=== PATIENT | female | born 1965 | race Caucasian/White ===

== ENCOUNTER 2016-08-27 09:25 | Emergency (ER) | payer MEDICAID, OTHER ==
[~2016-08-27] VITALS: Ht 149.9 cm; Wt 54.5 kg
[2016-08-27 09:31] VITALS: Ht 149.9 cm; Wt 54.5 kg
[2016-08-27] MEDS ORDERED: SOD CHLORIDE 0.9% 1,000 ML IV STA (10:09)
[2016-08-27] MEDS ORDERED: LIDOCAINE/MYLANTA 40 ML BTL PO STA (10:09)
[2016-08-27] MEDS ORDERED: ONDANSETRON 4 MG INJ IV STA (10:09)
[2016-08-27] MEDS ORDERED: KETOROLAC 15 MG INJ IV STA (10:09)
[2016-08-27] MEDS ORDERED: FAMOTIDINE 20 MG TAB PO STA (10:09)
[2016-08-27] MEDS ORDERED: BELLADONNA/PHENOBARBITAL TAB PO STA (10:09)
[2016-08-27 10:17] LABS: ADD UMIC YES; URINE BILIRUBIN (Dip) NEGATIVE (NEGATIVE); URINE BLOOD (Dip) 1+ (NEGATIVE); URINE COLOR LT. YELLOW (YELLOW); URINE GLUCOSE (Dip) NEGATIVE (NEGATIVE); URINE KETONES (Dip) NEGATIVE (NEGATIVE); URINE LEUKOCYTE ESTERASE (Dip) NEGATIVE (NEGATIVE); URINE NITRITE (Dip) NEGATIVE (NEGATIVE); URINE TOTAL PROTEIN (Dip) NEGATIVE (NEGATIVE); URINE UROBILINOGEN (Dip) 0.2 E.U./dL (0.1-1.0)
--- NOTE | 2016-08-27 10:24 | ERD ---
ER Documentation Chief Complaint Date/Time DATE: 08/27/16 TIME: 10:24 Chief Complaint BROUGHT IN VIA EMS FROM WORK DUE TO CHEST PAIN AND VOMITING HPI 51-year-old woman triaged as chest pain although she denies chest pain and points to her epigastrium. She states she has been having sharp nonexertional nonradiating epigastric pain and burning associated with 2 episodes of clear nonbloody nonbilious emesis. She has had no fevers or chills, no shortness of breath, no diarrhea, no blood per rectum or melena, no recent antibiotic use or recent travel. ROS All systems reviewed and are negative except as per history of present illness. Medications Home Meds Active Scripts Famotidine* (Famotidine*) 40 Mg Tablet, 40 MG PO HS, #30 TAB Prov:OZ IRVING MD 08/27/16 Mag Hydrox/Al Hydrox/Simeth (Maalox Advanced Suspension) 355 Ml Oral.susp, 2 TSP PO TID for PAIN, #24 OZ Prov:OZ IRVING MD 08/27/16 Naproxen* (Naproxen*) 500 Mg Tablet, 500 MG PO BID Y for PAIN, #20 TAB Prov:OZ IRVING MD 08/27/16 Omeprazole* (Omeprazole*) 40 Mg Capsule.dr, 40 MG PO DAILY, #30 CAP Prov:OZ IRVING MD 08/27/16 Allergies Allergies: Coded Allergies: No Known Allergy (Unverified , 08/27/16) PMhx/Soc Gastritis History of Surgery: No Hx Neurological Disorder: No Hx Respiratory Disorders: No Hx Cardiac Disorders: No Hx Psychiatric Problems: No Hx Miscellaneous Medical Probl: No Hx Alcohol Use: No Hx Substance Use: No Hx Tobacco Use: No Smoking Status: Never smoker FmHx Family History: No diabetes Physical Exam Vitals Vital Signs Date Time Temp Pulse Resp B/P Pulse Ox O2 Delivery O2 Flow Rate FiO2 08/27/16 12:15 65 17 166/78 99 Room Air 08/27/16 09:31 98.2 73 18 136/84 98 Physical Exam GENERAL: Well-developed, well-nourished, well-hydrated, in no apparent distress , looks nontoxic in appearance HEENT: Moist mucous membranes, pink conjunctiva, no cervical spine tenderness or step-off deformities, no goiter, no jaundice or icterus, extraocular movements intact without pain. No submandibular induration, and no pharyngeal erythema NEURO: Alert and oriented 3, cranial nerves II through XII intact bilaterally, pupils equal round reactive to light, no focal deficits or facial asymmetry, sensation intact distally Strength 5/5 in upper and lower extremities bilaterally CARDIAC: Regular rate and rhythm, no murmurs rubs or gallops LUNGS: Clear bilaterally no wheezing crackles or stridor ABDOMEN: Soft nontender, no guarding, no rigidity, no rebound, no psoas sign no obturator sign. Normoactive bowel sounds SKIN: Warm and dry to touch, no abrasions, contusions, or hematomas, no lacerations, no ecchymosis, no target lesions, and without ulcers EXTREMITIES: No clubbing cyanosis or edema, calves are bilaterally symmetrical, no Homans sign, no popliteal cord sign. Distal pulses equal and bilateral PSYCH: Normal affect without agitation or irritability Result Diagram: 08/27/16 1000 08/27/16 1000 Results 24 hrs Laboratory Tests Test 08/27/16 10:00 08/27/16 10:02 White Blood Count 6.810^3/ul Red Blood Count 4.3710^6/ul Hemoglobin 12.2g/dl Hematocrit 36.9% Mean Corpuscular Volume 84.4fl Mean Corpuscular Hemoglobin 27.9pg Mean Corpuscular Hemoglobin Concent 33.1g/dl Red Cell Distribution Width 12.7% Platelet Count 01557^3/UL Mean Platelet Volume 9.9fl Neutrophils % 52.6% Lymphocytes % 36.2% Monocytes % 8.1% Eosinophils % 2.3% Basophils % 0.4% Nucleated Red Blood Cells % 0.0/100WBC Neutrophils # 3.610^3/ul Lymphocytes # 2.510^3/ul Monocytes # 0.610^3/ul Eosinophils # 0.210^3/ul Basophils # 0.010^3/ul Nucleated Red Blood Cells # 0.010^3/ul Sodium Level 139mmol/L Potassium Level 3.8mmol/L Chloride Level 105mmol/L Carbon Dioxide Level 24mmol/L Anion Gap 14 Blood Urea Nitrogen 8mg/dl Creatinine 0.61mg/dl Glucose Level 138mg/dl Calcium Level 9.0mg/dl Total Bilirubin 0.1mg/dl Direct Bilirubin 0.00mg/dl Indirect Bilirubin 0.1mg/dl Aspartate Amino Transf (AST/SGOT) 33IU/L Alanine Aminotransferase (ALT/SGPT) 42IU/L Alkaline Phosphatase 158IU/L Total Protein 7.6g/dl Albumin 4.1g/dl Globulin 3.50g/dl Albumin/Globulin Ratio 1.17 Lipase 92U/L Urine Color LT. YELLOW Urine Clarity CLEAR Urine pH 7.0 Urine Specific [place] <=1.005 Urine Ketones NEGATIVE Urine Nitrite NEGATIVE Urine Bilirubin NEGATIVE Urine Urobilinogen 0.2 E.U./dL Urine Leukocyte Esterase NEGATIVE Urine Microscopic RBC 2-5/HPF Urine Microscopic WBC NONE SEEN/HPF Urine Hemoglobin 1+ Urine Glucose NEGATIVE% Urine Total Protein NEGATIVE Current Medications Medications (Trade) Dose Ordered Sig/Stephon Route PRN Reason Start Time Stop Time Status Last Admin Dose Admin Sodium Chloride (NS) 1,000 ml @ 1,000 mls/hr Q1H STAT IV 08/27/16 10:09 08/27/16 11:08 DC 08/27/16 10:21 Ondansetron HCl (Zofran Inj) 4 mg ONCE STAT IV 08/27/16 10:09 08/27/16 10:11 DC 08/27/16 10:21 Famotidine (Pepcid) 40 mg ONCE STAT PO 08/27/16 10:09 08/27/16 10:11 DC 08/27/16 10:21 Miscellaneous Medication (Gi Cocktail (2)) 40 ml ONCE STAT PO 08/27/16 10:09 08/27/16 10:11 DC 08/27/16 10:21 Belladonna/ Phenobarbital () 2 tab ONCE STAT PO 08/27/16 10:09 08/27/16 10:11 DC 08/27/16 10:21 Ketorolac Tromethamine (Toradol) 15 mg ONCE STAT IV 08/27/16 10:09 08/27/16 10:11 DC 08/27/16 10:28 Procedures/MDM IV line was established patient was placed on surveillance monitor rhythm strip revealed a sinus rhythm at about 70 bpm with upright P and T waves. Patient was afebrile. EKG performed, read by me: 66 bpm, normal sinus rhythm, normal axis, no acute ST segment changes, narrow QRS complex, with good R-wave progression in precordial leads. I administered 1 L normal saline intravenously, Zofran 4 mg IV, Toradol 15 mg IV , GI cocktail 50 cc p.o., and famotidine 40 mg p.o. with good response. CBC and electrolytes are normal, liver function tests are normal, urine analysis was negative. Gallbladder ultrasound revealed steatosis, no acute cholecystitis was noted. Please refer to radiologist dictation for full report. Differential diagnoses considered, included but not limited to acute coronary syndrome, pulmonary embolism, aortic dissection, abdominal aortic aneurysm, sepsis, stroke, meningitis, encephalitis, pneumonia, appendicitis, cholecystitis , bowel obstruction, pyelonephritis, nephrolithiasis, cystitis, as well as metabolic, hematologic, and electrolyte abnormalities. As well as abscess, cellulitis, fractures, and dislocations. Patient feels much better at this time, and vital signs are normal, symptoms have improved. I did give strict instructions to return to the ED if symptoms continue or worsen, patient will otherwise follow-up with primary care physician. Patient understood instructions and agreed to plan. Departure Diagnosis: Primary Impression: Abdominal pain Abdominal location: epigastric Qualified Code: R10.13 - Epigastric pain Additional Impressions: Steatosis Gastritis Gastritis type: superficial Chronicity: acute Gastritis bleeding: without bleeding Qualified Code: K29.00 - Acute superficial gastritis without hemorrhage Condition: Good OZ IRVING MD Aug 27, 2016 10:24
[2016-08-27 11:16] LABS: ADD SCAN DIFF NO
[2016-08-27 11:17] LABS: BASOPHILS % 0.4 % (0.0-2.0); EOSINOPHILS # 0.2 10^3/ul (0.0-0.5); EOSINOPHILS % 2.3 % (0.0-7.0); HEMATOCRIT 36.9 % (37.0-47.0); HEMOGLOBIN 12.2 g/dl (12.0-16.0); LYMPHOCYTES # 2.5 10^3/ul (0.8-2.9); LYMPHOCYTES % 36.2 % (15.0-51.0); MEAN CORPUSCULAR HEMOGLOBIN 27.9 pg (29.0-33.0); MEAN CORPUSCULAR HGB CONC 33.1 g/dl (32.0-37.0); MEAN CORPUSCULAR VOLUME 84.4 fl (82.0-101.0); MEAN PLATELET VOLUME 9.9 fl (7.4-10.4); MONOCYTE # 0.6 10^3/ul (0.3-0.9); MONOCYTES % 8.1 % (0.0-11.0); NEUTROPHIL # 3.6 10^3/ul (1.6-7.5); NEUTROPHILS % 52.6 % (39.0-77.0); PLATELET COUNT 304 10^3/UL (140-415); RED BLOOD COUNT 4.37 10^6/ul (4.20-5.40); RED CELL DISTRIBUTION WIDTH 12.7 % (11.5-14.5); WHITE BLOOD COUNT 6.8 10^3/ul (4.8-10.8)
--- NOTE | 2016-08-27 11:20 | RADRPT ---
PROCEDURE: US Abdomen (right upper quadrant). CLINICAL INDICATION: Abdominal pain TECHNIQUE: Multiple real-time longitudinal and transverse images of the right upper quadrant of th e abdomen were acquired utilizing a curved array transducer. Images were reviewed on a high-resoluti on PACS workstation. COMPARISON: None FINDINGS: The liver is normal in size and demonstrates mildly diffusely increased echogenicity without focal m ass or intrahepatic biliary dilatation. The gallbladder is normal. There is no pericholecystic flu id or gallbladder wall thickening or gallstones. No intra or extrahepatic biliary dilatation is see n. The common bile duct measures 4.2 mm in maximal dimension. The visualized portions of the pancr eas are unremarkable with obscuration of the tail of the pancreas. No free fluid is identified. The right kidney measures 11.23 cm in length. There is normal echogenicity within the right kidney. There is no perinephric fluid collection. No hydronephrosis, mass, or calculus is seen. IMPRESSION: Mildly diffusely increased hepatic echogenicity suggesting steatosis. Otherwise, unremarkable right upper quadrant ultrasound. RPTAT: JJ .Larry Marrero MD, MD Date Time Electronically viewed and signed by .Larry Marrero MD, on 08/27/2016 11:20 .A/
[2016-08-27 11:27] LABS: ALBUMIN 4.1 g/dl (3.3-4.9); ALBUMIN/GLOBULIN RATIO 1.17; BILIRUBIN,INDIRECT 0.1 mg/dl (0-1.1); BILIRUBIN,TOTAL 0.1 mg/dl (0.2-1.3); CREATININE 0.61 mg/dl (0.44-1.00); POTASSIUM 3.8 mmol/L (3.5-5.1); TOTAL PROTEIN 7.6 g/dl (6.1-8.1)
[2016-08-27] MEDS ORDERED: OMEP40CA6 PO (11:46)
[2016-08-27] MEDS ORDERED: MAG355OR14 PO (11:46)
[2016-08-27] MEDS ORDERED: FAMO40TA52 PO (11:46)
[2016-08-27] MEDS ORDERED: NAPR-688 PO (11:46)
[2016-08-27 12:15] VITALS: BP 166/78; PULSE 65; RESP 17
== END 2016-08-27 12:16 | disposition home or self-care (01) ==
LOC: E/R 09:25
DX: R10.13 Epigastric pain (principal); K76.0 Fatty (change of) liver, not elsewhere classified; K29.00 Acute gastritis without bleeding
CPT/HCPCS: 76705; 80053; 81001; 81003; 83690; 85025; J1885; J2405; J7030; Z7610; 36415; 96374; 96375

== ENCOUNTER 2017-01-30 15:17 | Emergency (ER) | payer SELFPAY ==
[~2017-01-30] VITALS: Ht 167.6 cm; Wt 55.5 kg
[~2017-01-30 15:17] MED LIST: FAMO40TA52 PO; MAG355OR14 PO; NAPR-688 PO; OMEP40CA6 PO
[2017-01-30 15:24] VITALS: Ht 167.6 cm; Wt 55.5 kg
[2017-01-30] MEDS ORDERED: ONDANSETRON 4 MG INJ IV STA (15:44)
[2017-01-30 16:19] LABS: BASOPHILS % 0.4 % (0.0-2.0); EOSINOPHILS # 0.2 10^3/ul (0.0-0.5); EOSINOPHILS % 2.4 % (0.0-7.0); HEMATOCRIT 36.5 % (37.0-47.0); HEMOGLOBIN 11.9 g/dl (12.0-16.0); LYMPHOCYTES # 3.1 10^3/ul (0.8-2.9); LYMPHOCYTES % 41.2 % (15.0-51.0); MEAN CORPUSCULAR HEMOGLOBIN 27.6 pg (29.0-33.0); MEAN CORPUSCULAR HGB CONC 32.6 g/dl (32.0-37.0); MEAN CORPUSCULAR VOLUME 84.7 fl (82.0-101.0); MEAN PLATELET VOLUME 9.4 fl (7.4-10.4); MONOCYTE # 0.7 10^3/ul (0.3-0.9); MONOCYTES % 8.6 % (0.0-11.0); NEUTROPHIL # 3.5 10^3/ul (1.6-7.5); PLATELET COUNT 300 10^3/UL (140-415); RED BLOOD COUNT 4.31 10^6/ul (4.20-5.40); RED CELL DISTRIBUTION WIDTH 12.8 % (11.5-14.5); WHITE BLOOD COUNT 7.5 10^3/ul (4.8-10.8)
[2017-01-30 16:37] LABS: ADD UMIC NO; UR ASCORBIC ACID 20 mg/dL (NEGATIVE); UR BILIRUBIN (Dip) NEGATIVE (NEGATIVE); UR BLOOD (Dip) NEGATIVE (NEGATIVE); UR CLARITY SLIGHTLY CLOUDY (CLEAR); UR COLOR YELLOW (YELLOW); UR GLUCOSE (Dip) NEGATIVE (NEGATIVE); UR KETONES (Dip) NEGATIVE (NEGATIVE); UR LEUKOCYTE ESTERASE (Dip) NEGATIVE Leu/ul (NEGATIVE); UR NITRITE (Dip) NEGATIVE (NEGATIVE); UR RBC 1 /HPF (0-5); UR SPECIFIC GRAVITY (Dip) 1.018 (1.003-1.030); UR TOTAL PROTEIN (Dip) NEGATIVE (NEGATIVE); UR UROBILINOGEN (Dip) NEGATIVE (NEGATIVE)
[2017-01-30] MEDS ORDERED: KETOROLAC 30 MG INJ IV STA (16:39)
[2017-01-30 16:48] LABS: ALBUMIN 4.4 g/dl (3.3-4.9); ALBUMIN/GLOBULIN RATIO 1.29; CALCIUM 9.5 mg/dl (8.4-10.2); CREATININE 0.77 mg/dl (0.44-1.00); POTASSIUM 4.2 mmol/L (3.5-5.1); TOTAL PROTEIN 7.8 g/dl (6.1-8.1)
[2017-01-30] MEDS ORDERED: ONDA8TAB14 PO (17:12)
[2017-01-30] MEDS ORDERED: IBUP400T22 PO (17:12)
--- NOTE | 2017-01-30 17:16 | ERD ---
ER Documentation Chief Complaint Date/Time DATE: 01/30/17 TIME: 17:14 Chief Complaint jones, backpain & chills x3days HPI This 51-year-old female presents with multiple complaints for the last 2 days. She feels chills but no fevers. She has low back pain. She has bitemporal headache with some mild dizziness. She also has nausea suprapubic pain. She denies any specific right lower quadrant pain or right upper quadrant pain. She denies any chest pain or shortness of breath or sore throat. ROS All systems reviewed and are negative except as per history of present illness. Medications Home Meds Active Scripts Ondansetron (Ondansetron Odt) 8 Mg Tab.rapdis, 8 MG PO Q6H Y for NAUSEA AND/OR VOMITING, #8 TAB Prov:LEV PATTERSON MD 01/30/17 Ibuprofen* (Motrin*) 400 Mg Tab, 400 MG PO Q6, #15 TAB Prov:LEV PATTERSON MD 01/30/17 Famotidine* (Famotidine*) 40 Mg Tablet, 40 MG PO HS, #30 TAB Prov:OZ IRVING MD 08/27/16 Mag Hydrox/Al Hydrox/Simeth (Maalox Advanced Suspension) 355 Ml Oral.susp, 2 TSP PO TID for PAIN, #24 OZ Prov:OZ IRVING MD 08/27/16 Naproxen* (Naproxen*) 500 Mg Tablet, 500 MG PO BID Y for PAIN, #20 TAB Prov:OZ IRVING MD 08/27/16 Omeprazole* (Omeprazole*) 40 Mg Capsule.dr, 40 MG PO DAILY, #30 CAP Prov:OZ IRVING MD 08/27/16 Allergies Allergies: Coded Allergies: No Known Allergy (Unverified , 01/30/17) PMhx/Soc History of Surgery: No Anesthesia Reaction: No Hx Neurological Disorder: No Hx Respiratory Disorders: No Hx Cardiac Disorders: No Hx Psychiatric Problems: No Hx Miscellaneous Medical Probl: No Hx Alcohol Use: No Hx Substance Use: No Hx Tobacco Use: No Smoking Status: Never smoker Physical Exam Vitals Vital Signs Date Time Temp Pulse Resp B/P Pulse Ox O2 Delivery O2 Flow Rate FiO2 01/30/17 15:24 97.5 72 18 141/72 99 Physical Exam Const: []Alert, [id number] per Head: Atraumatic Eyes: Normal Conjunctiva ENT: Normal External Ears, Nose and Mouth. Neck: Full range of motion..~ No meningismus. Resp: Clear to auscultation bilaterally Cardio: Regular rate and rhythm, no murmurs Abd: Soft, Possibly minimal suprapubic pain. No tenderness at McBurney's point no Roman sign, non distended. Normal bowel sounds Skin: No petechiae or rashes Back: No midline or flank tenderness Ext: No cyanosis, or edema Neur: Awake and alert Psych: Normal Mood and Affect Result Diagram: 01/30/17 1555 01/30/17 1555 Results 24 hrs Laboratory Tests Test 01/30/17 15:55 White Blood Count 7.510^3/ul Red Blood Count 4.3110^6/ul Hemoglobin 11.9g/dl Hematocrit 36.5% Mean Corpuscular Volume 84.7fl Mean Corpuscular Hemoglobin 27.6pg Mean Corpuscular Hemoglobin Concent 32.6g/dl Red Cell Distribution Width 12.8% Platelet Count 85813^3/UL Mean Platelet Volume 9.4fl Neutrophils % 47.0% Lymphocytes % 41.2% Monocytes % 8.6% Eosinophils % 2.4% Basophils % 0.4% Nucleated Red Blood Cells % 0.0/100WBC Neutrophils # 3.510^3/ul Lymphocytes # 3.110^3/ul Monocytes # 0.710^3/ul Eosinophils # 0.210^3/ul Basophils # 0.010^3/ul Nucleated Red Blood Cells # 0.010^3/ul Urine Color YELLOW Urine Clarity SLIGHTLY CLOUDY Urine pH 7.0 Urine Specific [place] 1.018 Urine Ketones NEGATIVEmg/dL Urine Nitrite NEGATIVEmg/dL Urine Bilirubin NEGATIVEmg/dL Urine Urobilinogen NEGATIVEmg/dL Urine Leukocyte Esterase NEGATIVELeu/ul Urine Microscopic RBC 1/HPF Urine Microscopic WBC 2/HPF Urine Hemoglobin NEGATIVEmg/dL Urine Glucose NEGATIVEmg/dL Urine Total Protein NEGATIVEmg/dl Sodium Level 143mmol/L Potassium Level 4.2mmol/L Chloride Level 107mmol/L Carbon Dioxide Level 27mmol/L Anion Gap 13 Blood Urea Nitrogen 17mg/dl Creatinine 0.77mg/dl Glucose Level 115mg/dl Calcium Level 9.5mg/dl Total Bilirubin 0.0mg/dl Direct Bilirubin 0.00mg/dl Indirect Bilirubin 0.0mg/dl Aspartate Amino Transf (AST/SGOT) 43IU/L Alanine Aminotransferase (ALT/SGPT) 59IU/L Alkaline Phosphatase 171IU/L Total Protein 7.8g/dl Albumin 4.4g/dl Globulin 3.40g/dl Albumin/Globulin Ratio 1.29 Lipase 156U/L Current Medications Medications (Trade) Dose Ordered Sig/Stephon Route PRN Reason Start Time Stop Time Status Last Admin Dose Admin Ondansetron HCl (Zofran Inj) 4 mg ONCE STAT IV 01/30/17 15:44 01/30/17 15:46 DC 01/30/17 16:04 Ketorolac Tromethamine (Toradol) 30 mg ONCE STAT IV 01/30/17 16:39 01/30/17 16:46 DC 01/30/17 17:01 Procedures/MDM . Urine shows trace hemoglobin without leukocytes, nitrates and glucose. CBC shows normal leukocytes. This is very slight anemia. CMP is normal and lipase is normal. Patient was given Zofran 4 mg IV and Toradol 30 mg as needed. Patient presents with multiple complaints including suprapubic pain, low back pain, bitemporal headache. She has chills but no fever no tachycardia. There is no evidence of sepsis, signs or symptoms to suggest appendicitis, acute abdomen, UTI, pneumonia. She may have an early viral illness. She will be discharged home with close observation, treatment for myalgias and fever and nausea instructions for 1-2 day recheck for vomiting, abdominal pain, new worsening symptoms. She should otherwise follow-up with primary care doctor this week. The patient was stable with no new complaints during the ER course. Clinically, there is no current evidence to suggest meningitis, sepsis, acute abdomen, pneumonia, acute coronary syndrome, pulmonary embolism, or any other emergent condition appearing to require further evaluation or hospitalization. The patient should certainly return for any new or worsening symptoms per the aftercare instructions. They should otherwise follow-up with her primary care doctor for reevaluation this week. Departure Diagnosis: Primary Impression: Abdominal pain Abdominal location: unspecified location Qualified Code: R10.9 - Abdominal pain, unspecified abdominal location Additional Impression: Headache Headache type: unspecified Headache chronicity pattern: unspecified pattern Intractability: not intractable Qualified Code: R51 - Nonintractable headache, unspecified chronicity pattern, unspecified headache type Condition: Stable Patient Instructions: Abdominal Pain, Self-Care for Headaches Referrals: [facility] Usted se jones hecho un examen mdico de control que le indica que no est en chino condicin que requiera tratamiento urgente en el Departamento de Emergencia. Un estudio ms profundo y el tratamiento de bentley condicin pueden esperar sin ningn riesgo hasta que usted sea atendida/o en el consultorio de bentley mdico o chino cl andrea. Es responsabilidad suya arreglar chino kali para el seguimiento del nanette. MANEJO DE CONDICIONES NO URGENTES EN EL FUTURO 1) Si usted tiene un mdico de atencin primaria: Usted debera llamar a bentley mdico de atencin primaria antes de venir al departamento de emergencia. Despus de las horas de consultorio, bentley doctor o bentley asociado/a est disponible por telfono. El mdico o enfermero de eliel en el servicio telefnico puede asesorarle por shona medio para atender el problema, o nanette contrario se puede programar chino kali. 2) Si usted no tiene un mdico de atencin primaria: Llame al mdico o clnica de referencia que aparece abajo renetta las horas de consultorio para hacer chino kali para que le vean. CLINICAS: [facility] [phone] [facility] [phone] [facility] [phone] [address] [facility]. [place] [id number] [phone] [place] [phone] [facility] [phone] [place] [address] [place] Additional Instructions: Examines normal hoy. Cheque otro vez con bentley doctor primario en el proximo elise or regresa para mas o nueva simptomas. LEV PATTERSON MD Jan 30, 2017 17:16
== END 2017-01-30 17:23 | disposition home or self-care (01) ==
LOC: FTE 15:17
DX: R10.30 Lower abdominal pain, unspecified (principal)
CPT/HCPCS: 36415; 80053; 81001; 83690; 85025; 96374; 96375; 99284; J1885; J2405; 81003

== ENCOUNTER 2017-07-31 12:17 | Emergency (ER) | END 2017-07-31 15:30 | disposition home or self-care (01) ==

== ENCOUNTER 2017-08-14 15:27 | Emergency (ER) | END 2017-08-14 17:28 | disposition home or self-care (01) ==